=== PATIENT | female | born 1945 | race Caucasian/White ===

== ENCOUNTER 2020-12-26 15:58 | Emergency (ER) | payer MEDICARE, OTHER ==
[~2020-12-26] VITALS: Ht 162.6 cm; Wt 72.6 kg
--- NOTE | 2020-12-26 16:13 | NUR ---
PT IS IN ROOM #1A. DR DENNEY EVALUATED THE PT.
[2020-12-26 16:38] LABS: HEMATOCRIT 40.3 % (31.2-41.9); MEAN CORPUSCULAR HEMOGLOBIN 29.4 uug (24.7-32.8); MEAN CORPUSCULAR VOLUME 88.1 fL (75.5-95.3); PLATELET COUNT (AUTO) 266 K/uL (179-408)
[2020-12-26] MEDS ORDERED: CRESTOR (16:50)
[2020-12-26 17:01] LABS: BILIRUBIN,DIRECT 0.2 mg/dL (0.0-0.2); BILIRUBIN,TOTAL 0.6 mg/dL (0.2-1.0); TOTAL PROTEIN, SERUM 7.1 g/dL (6.4-8.2)
--- NOTE | 2020-12-26 18:02 | NUR ---
PT DECIDED TO LEAVE [facility] ER AMA. DR DENNEY EXPLAINED ALL RISKS OF LEAVING HOSPITAL AMA TO THE PT AND TO HER DOUGHTER. THEY VERBALIZED FULL UNDERSTANDING. PT SIGNED AMA FORM AND LEFT HOSPITAL WITH HER BY CAR. NO S/S OF ACUTE DISTRESS AT THIS TIME.
[2020-12-26 18:07] VITALS: BP 136/78
== END 2020-12-26 18:09 | disposition left against medical advice (07) ==
LOC: ER 15:58
DX: R07.9 Chest pain, unspecified (principal); E78.5 Hyperlipidemia, unspecified; Z53.29 Procedure and treatment not carried out because of patient's decision for other reasons; J98.11 Atelectasis
CPT/HCPCS: 36415; 70030-TC; 71045; 85025; 93005; A4663